=== PATIENT | female | born 1955 | race Caucasian/White ===

== ENCOUNTER → 2021-05-09 | Emergency (ER) | payer BC ==
[~2021-05-09] VITALS: Ht 167.6 cm; Wt 84.1 kg
[~2021-05-09] MED LIST: FLO0.4C PO; HYDR-3965 PO; ketorolac trometh. 30mg/ml inj. IV ONE; ketorolac tromethamine 15mg/ml inj. IM ONE; normal saline 1000ML IV soln IVB ONE
[2021-05-09 17:05] VITALS: BP 152/82
[2021-05-09 18:00] LABS: CLARITY,URINE CLEAR (Clear); COLOR,URINE YELLOW (Yellow); GLUCOSE, URINE NEGATIVE (Neg); KETONES,URINE NEGATIVE (Neg); LEUKOCYTE ESTERASE ,URINE NEGATIVE (Neg); NITRITES, URINE NEGATIVE (Neg); OCCULT BLOOD,URINE NEGATIVE (Neg); PROTEIN,URINE NEGATIVE (Neg); UA COLLECTION TYPE CLN CATCH MIDSTREAM; UROBILINOGEN,URINE 0.2 E.U/dL (0.2-1.0)
[2021-05-09] MEDS: ketorolac tromethamine 15mg/ml inj. IM ONE ×2 (18:47→18:51)
--- NOTE | 2021-05-09 18:52 | NUR ---
SCANNER NOT WORKING IN ROOM, ADMINISTERED MEDS.
== END | disposition home or self-care (01) ==
LOC: ER 16:09
DX: N23 Unspecified renal colic (principal); R50.9 Fever, unspecified; R11.0 Nausea; R51.9 Headache, unspecified; Z87.440 Personal history of urinary (tract) infections; Z79.899 Other long term (current) drug therapy
CPT/HCPCS: 74176; 81003; 96361; 96374; 99284; J1885; J7030